=== PATIENT | female | born 1990 | race African-American/Black ===

== ENCOUNTER 2021-01-01 21:30 | Emergency (ER) | payer OTHER ==
[2021-01-01 21:35] VITALS: BP 105/71; PULSE 103; TEMP 98.6; BMI 36.1
[2021-01-01] MEDS: ALBUTEROL SO4 2.5/IPRATROPIUM 0.5 INH SOL 3 ML VIAL.NEB. NEB SCH ×2 (23:51→23:57)
[2021-01-02] MEDS ORDERED: DEXAMETHASONE 4 MG TABLET (FP) PO ONE (00:43)
[2021-01-02] MEDS: ALBUTEROL SO4 2.5/IPRATROPIUM 0.5 INH SOL 3 ML VIAL.NEB. NEB SCH (00:44)
[2021-01-02] MEDS ORDERED: predniSONE 10 MG TABLET (UD) ONE (00:48)
[2021-01-02] MEDS ORDERED: DEXAMETHASONE 4 MG TABLET (FP) ONE (00:50)
== END 2021-01-02 01:46 | disposition home or self-care (01) ==
LOC: JER 21:30
PROC: 3E0F7GC Introduction of Other Therapeutic Substance into Respiratory Tract, Via Natural or Artificial Opening (ICD-10-PCS; principal; 2021-01-01)
DX: O99.513 Diseases of the respiratory system complicating pregnancy, third trimester (principal); Z3A.32 32 weeks gestation of pregnancy
CPT/HCPCS: 99283-25